=== PATIENT | female | born 1980 | race Caucasian/White ===

== ENCOUNTER 2016-09-02 11:45 | Emergency (ER) | payer OTHER ==
[~2016-09-02] VITALS: Ht 162.5 cm; Wt 100.7 kg
[~2016-09-02 11:45] MED LIST: ALBUTEROL0.09 MG/A2 INH; AMOXICILLIN500 MG PO; ATARAX25 MG PO; AUGMENTIN 875875 MG PO; CATAFLAM50 MG PO; CLARITIN10 MG PO; CYCLOBENZAPRINE10 MG PO; FLEXERIL10 MG PO; FLEXERIL5 MG PO; Fioricet 325 MG1 TAB PO; HYDROCODONE BIT1 T11 PO; IBU800 M1 PO; KEFLEX500 MG PO; LIDEX 0.05% CRE15 GM T; LIDEX0.05% T; MOTRIN800 MG PO; NKHM; NORCO 5-325 TA1 EACH PO; PERCOCET 325 MG1 TA7 PO; PREDNICOT20 MG PO; PREDNISONE10 MG PO; PREDNISONE20 M1 PO; PREDNISONE20 MG PO; ROBITUSSIN AC 110 ML PO; SYNTHROID0.05 MG PO; TESSALON PERLE100 M1 PO; TRAMADOL HCL50 MG PO; TYLENOL W/CODEI1 TA2 PO; VICODIN 5/500 505 MG PO; ZITHROMAX Z-PA250 MG PO
[2016-09-02 11:57] VITALS: BP 121/64
[2016-09-02] MEDS ORDERED: CYCLOBENZAPRINE10 MG PO (13:58)
[2016-09-02] MEDS ORDERED: IBU800 MG PO (14:00)
== END 2016-09-02 14:45 | disposition home or self-care (01) ==
LOC: ED 11:45
DX: M51.86 Other intervertebral disc disorders, lumbar region (principal); F17.200 Nicotine dependence, unspecified, uncomplicated; Z90.49 Acquired absence of other specified parts of digestive tract

== ENCOUNTER 2016-10-21 21:01 | Emergency (ER) | payer OTHER ==
[~2016-10-21] VITALS: Ht 160 cm; Wt 98.9 kg
[~2016-10-21 21:01] MED LIST changes: +IBU800 MG PO
[2016-10-21 21:05] VITALS: BP 141/75
[2016-10-21] MEDS ORDERED: SUMATRIPTAN SUC25 M1 PO (21:07)
[2016-10-21 21:52] LABS: BASO % 0.3 % (0.0-1.0); EOS # 0.1 10*3/uL (0.0-0.4); EOS % 1.3 % (1.0-4.0); HEMATOCRIT 37.9 % (37.0-47.0); HEMOGLOBIN 12.6 g/dl (12.0-16.0); LYMPH # 2.8 10*3/uL (1.3-4.4); LYMPH % 30.8 % (27.0-41.0); MEAN CELL VOLUME 101.3 fl (81.0-99.0); MEAN CORPUSCULAR HGB 33.7 pg (27.0-31.0); MEAN CORPUSCULAR HGB CONC 33.2 g/dl (33.0-37.0); MEAN PLATELET VOLUME 11.6 fl (9.6-12.3); MONO # 0.5 10*3/uL (0.1-1.0); MONO % 5.7 % (3.0-9.0); NEUT # 5.7 10*3/uL (2.3-7.9); NEUT % 61.7 % (47.0-73.0); PLATELET COUNT AUTOMATED 226 10*3/uL (130-400); RED BLOOD COUNT 3.74 10*6/uL (4.10-5.10); RED CELL DISTRI WIDTH 13.2 % (0-14.5); WHITE BLOOD COUNT 9.2 10*3/uL (4.8-10.8)
[2016-10-21 22:07] LABS: ALBUMIN 3.4 gm/dl (3.1-4.5); ALKALINE PHOSPHATASE 58 U/L (45-117); BILIRUBIN, TOTAL 0.2 mg/dl (0.2-1.0); BUN 11 mg/dl (7-24); CARBON DIOXIDE 27 mmol/L (21-32); CHLORIDE 109 mmol/L (98-107); EST GLOM FILT AFRICAN AMERICAN > 60 ml/min; GLUCOSE 120 mg/dL (65-99); POTASSIUM 3.6 mmol/L (3.5-5.1); SGOT/AST 16 IU/L (3-35); SGPT/ALT 26 U/L (12-78); SODIUM 145 mmol/L (136-145); TOTAL PROTEIN 6.6 gm/dL (6.4-8.2)
== END 2016-10-21 22:29 | disposition home or self-care (01) ==
LOC: ED 21:01
PROVIDERS: Nurse Practitioner Family
DX: G43.909 Migraine, unspecified, not intractable, without status migrainosus (principal); F17.200 Nicotine dependence, unspecified, uncomplicated; Z79.899 Other long term (current) drug therapy

== ENCOUNTER 2016-12-07 02:54 | Emergency (ER) | payer OTHER ==
[~2016-12-07 02:54] MED LIST changes: +SUMATRIPTAN SUC25 M1 PO
[2016-12-07 03:05] VITALS: BP 138/78
[2016-12-07] MEDS ORDERED: IBU800 MG PO (03:16)
[2016-12-07 03:44] LABS: BASO % 0.4 % (0.0-1.0); EOS # 0.2 10*3/uL (0.0-0.4); HEMATOCRIT 35.9 % (37.0-47.0); LYMPH # 3.3 10*3/uL (1.3-4.4); LYMPH % 36.6 % (27.0-41.0); MEAN CELL VOLUME 102.6 fl (81.0-99.0); MEAN CORPUSCULAR HGB 34.3 pg (27.0-31.0); MEAN CORPUSCULAR HGB CONC 33.4 g/dl (33.0-37.0); MEAN PLATELET VOLUME 11.6 fl (9.6-12.3); MONO # 0.6 10*3/uL (0.1-1.0); MONO % 6.3 % (3.0-9.0); NEUT # 4.9 10*3/uL (2.3-7.9); NEUT % 54.5 % (47.0-73.0); PLATELET COUNT AUTOMATED 203 10*3/uL (130-400); RED CELL DISTRI WIDTH 13.1 % (0-14.5); WHITE BLOOD COUNT 9.1 10*3/uL (4.8-10.8)
[2016-12-07 03:55] LABS: BUN 19 mg/dl (7-24); CARBON DIOXIDE 24 mmol/L (21-32); CHLORIDE 107 mmol/L (98-107); EST GLOM FILT AFRICAN AMERICAN > 60 ml/min; GLUCOSE 107 mg/dL (65-99); POTASSIUM 3.8 mmol/L (3.5-5.1); SODIUM 142 mmol/L (136-145)
[2016-12-07 04:45] LABS: BILIRUBIN NEGATIVE (NEGATIVE); BLOOD TRACE-INTACT (NEGATIVE); CLARITY CLEAR (CLEAR); COLOR YELLOW (YELLOW); GLUCOSE NEGATIVE (NEGATIVE); KETONE NEGATIVE (NEGATIVE); LEUKO ESTERASE NEGATIVE (NEGATIVE); NITRITE NEGATIVE (NEGATIVE); PROTEIN NEGATIVE (NEGATIVE); UROBILINOGEN 0.2 E.U./dl (0.2-1.0)
[2016-12-07 04:53] LABS: URINE REFLEX COMMENT NO (NO)
[2016-12-07] MEDS ORDERED: Zofran4 MG PO (05:07)
== END 2016-12-07 05:21 | disposition home or self-care (01) ==
LOC: ED 02:54
PROVIDERS: Emergency Medicine
DX: S29.011A Strain of muscle and tendon of front wall of thorax, initial encounter (principal); R11.10 Vomiting, unspecified; G43.909 Migraine, unspecified, not intractable, without status migrainosus; Z90.49 Acquired absence of other specified parts of digestive tract; X58.XXXA Exposure to other specified factors, initial encounter; Y93.89 Activity, other specified; Y92.9 Unspecified place or not applicable; Y99.9 Unspecified external cause status

== ENCOUNTER 2016-12-20 20:58 | Emergency (ER) | payer OTHER ==
[~2016-12-20] VITALS: Ht 162.5 cm; Wt 99.8 kg
[~2016-12-20 20:58] MED LIST changes: +Zofran4 MG PO
[2016-12-20 21:17] VITALS: BP 145/68
[2016-12-20] MEDS ORDERED: PREDNISONE50 MG PO (21:34)
== END 2016-12-20 21:36 | disposition home or self-care (01) ==
LOC: ED 20:58
DX: G89.29 Other chronic pain (principal); M54.5 Low back pain; G43.909 Migraine, unspecified, not intractable, without status migrainosus; F17.200 Nicotine dependence, unspecified, uncomplicated; Z88.1 Allergy status to other antibiotic agents; Z79.899 Other long term (current) drug therapy

== ENCOUNTER 2018-06-09 12:15 | Emergency (ER) | payer OTHER ==
[~2018-06-09] VITALS: Ht 162.5 cm; Wt 104.3 kg
[~2018-06-09 12:15] MED LIST changes: +PREDNISONE50 MG PO
[2018-06-09 12:20] VITALS: BP 110/80
[2018-06-09] MEDS ORDERED: DOXYCYCLINE100 M3 PO (12:55)
[2018-06-09] MEDS ORDERED: ANTIBIOTIC28.4 GM T (12:55)
== END 2018-06-09 13:51 | disposition home or self-care (01) ==
LOC: ED 12:15
DX: L02.821 Furuncle of head [any part, except face] (principal); F17.200 Nicotine dependence, unspecified, uncomplicated; Z88.8 Allergy status to other drugs, medicaments and biological substances; Z88.1 Allergy status to other antibiotic agents; Z79.899 Other long term (current) drug therapy; Z90.49 Acquired absence of other specified parts of digestive tract

== ENCOUNTER 2018-09-11 09:27 | Emergency (ER) | payer OTHER ==
[~2018-09-11] VITALS: Ht 162.5 cm; Wt 104.3 kg
[~2018-09-11 09:27] MED LIST changes: +ANTIBIOTIC28.4 GM T; +DOXYCYCLINE100 M3 PO
[2018-09-11 09:30] VITALS: BP 131/68
[2018-09-11 10:29] LABS: BILIRUBIN NEGATIVE (NEGATIVE); BLOOD TRACE-INTACT (NEGATIVE); CLARITY CLOUDY (CLEAR); COLOR YELLOW (YELLOW); GLUCOSE NEGATIVE (NEGATIVE); KETONE NEGATIVE (NEGATIVE); LEUKO ESTERASE 1+ (NEGATIVE); NITRITE NEGATIVE (NEGATIVE); UROBILINOGEN 0.2 E.U./dl (0.2-1.0)
[2018-09-11 10:33] LABS: BASO % 0.5 % (0.0-1.0); EOS # 0.1 10*3/uL (0.0-0.4); EOS % 1.7 % (1.0-4.0); HEMATOCRIT 39.8 % (37.0-47.0); LYMPH # 2.4 10*3/uL (1.3-4.4); LYMPH % 31.7 % (27.0-41.0); MEAN CORPUSCULAR HGB CONC 32.7 g/dl (33.0-37.0); MEAN PLATELET VOLUME 11.4 fl (9.6-12.3); MONO # 0.5 10*3/uL (0.1-1.0); MONO % 7.2 % (3.0-9.0); NEUT # 4.4 10*3/uL (2.3-7.9); NEUT % 58.4 % (47.0-73.0); PLATELET COUNT AUTOMATED 233 10*3/uL (130-400); RED BLOOD COUNT 3.94 10*6/uL (4.10-5.10); RED CELL DISTRI WIDTH 13.2 % (0-14.5); WHITE BLOOD COUNT 7.5 10*3/uL (4.8-10.8)
[2018-09-11 10:37] LABS: BACTERIA 3+; WBC 21-30 wbc/hpf (0-5)
[2018-09-11 10:38] LABS: EPITHELIAL CELLS 15-20; RBC 16-20 rbc/hpf (0-2)
[2018-09-11 10:42] LABS: ACT PARTIAL THROMBO TIME 23.4 SECONDS (20.8-31.5); INTERNATIONAL NORM RATIO 0.9 (2.0-3.5)
[2018-09-11 10:48] LABS: ALBUMIN 3.2 gm/dl (3.1-4.5); ALKALINE PHOSPHATASE 61 U/L (45-117); BUN 12 mg/dl (7-24); CHLORIDE 110 mmol/L (98-107); CREATININE 0.79 mg/dL (0.55-1.02); SGOT/AST 16 IU/L (3-35); SGPT/ALT 24 U/L (12-78); SODIUM 138 mmol/L (136-145); TOTAL PROTEIN 7.3 gm/dL (6.4-8.2)
[2018-09-11] MEDS ORDERED: PREDNISONE20 M1 PO (13:40)
[2018-09-11] MEDS ORDERED: ROBAXIN500 M1 PO (13:40)
== END 2018-09-11 14:06 | disposition home or self-care (01) ==
LOC: ED 09:27
PROVIDERS: Physician Assistant
DX: S33.5XXA Sprain of ligaments of lumbar spine, initial encounter (principal); M54.6 Pain in thoracic spine; R20.2 Paresthesia of skin; Z88.1 Allergy status to other antibiotic agents; Z79.2 Long term (current) use of antibiotics; Z79.899 Other long term (current) drug therapy; Z90.49 Acquired absence of other specified parts of digestive tract; X50.0XXA Overexertion from strenuous movement or load, initial encounter; Y93.89 Activity, other specified; Y92.238 Other place in hospital as the place of occurrence of the external cause; Y99.8 Other external cause status

== ENCOUNTER 2019-01-20 14:48 | Emergency (ER) | payer OTHER ==
[~2019-01-20] VITALS: Ht 162.5 cm; Wt 113.4 kg
[~2019-01-20 14:48] MED LIST changes: +ROBAXIN500 M1 PO
[2019-01-20 14:49] VITALS: BP 135/51
[2019-01-20 16:00] LABS: BASO % 0.4 % (0.0-1.0); EOS # 0.2 10*3/uL (0.0-0.4); EOS % 2.4 % (1.0-4.0); HEMATOCRIT 34.8 % (37.0-47.0); HEMOGLOBIN 11.4 g/dl (12.0-16.0); LYMPH # 1.9 10*3/uL (1.3-4.4); LYMPH % 25.7 % (27.0-41.0); MEAN CELL VOLUME 101.5 fl (81.0-99.0); MEAN CORPUSCULAR HGB 33.2 pg (27.0-31.0); MEAN CORPUSCULAR HGB CONC 32.8 g/dl (33.0-37.0); MONO # 0.5 10*3/uL (0.1-1.0); MONO % 7.3 % (3.0-9.0); NEUT # 4.7 10*3/uL (2.3-7.9); NEUT % 64.1 % (47.0-73.0); PLATELET COUNT AUTOMATED 235 10*3/uL (130-400); RED BLOOD COUNT 3.43 10*6/uL (4.10-5.10); RED CELL DISTRI WIDTH 13.6 % (0-14.5); WHITE BLOOD COUNT 7.4 10*3/uL (4.8-10.8)
[2019-01-20 16:21] LABS: ALBUMIN 3.4 gm/dl (3.1-4.5); ALKALINE PHOSPHATASE 67 U/L (45-117); BUN 10 mg/dl (7-24); CHLORIDE 108 mmol/L (98-107); CREATININE 0.83 mg/dL (0.55-1.02); POTASSIUM 3.7 mmol/L (3.5-5.1); SGOT/AST 16 IU/L (3-35); SGPT/ALT 25 U/L (12-78); SODIUM 139 mmol/L (136-145); TOTAL PROTEIN 7.3 gm/dL (6.4-8.2)
[2019-01-20] MEDS ORDERED: ANTIBIOTIC28.4 GM T (16:35)
[2019-01-20] MEDS ORDERED: DOXYCYCLINE100 M3 PO (16:35)
== END 2019-01-20 17:05 | disposition home or self-care (01) ==
LOC: ED 14:48
PROVIDERS: Nurse Practitioner Family
DX: L08.9 Local infection of the skin and subcutaneous tissue, unspecified (principal); M25.572 Pain in left ankle and joints of left foot; F17.200 Nicotine dependence, unspecified, uncomplicated; Z79.899 Other long term (current) drug therapy; Z88.1 Allergy status to other antibiotic agents; X58.XXXA Exposure to other specified factors, initial encounter; Y93.89 Activity, other specified; Y92.89 Other specified places as the place of occurrence of the external cause; Y99.8 Other external cause status